=== PATIENT | male | born 1965 | race Caucasian/White ===

== ENCOUNTER 2020-07-05 08:02 | Outpatient (CLI) | payer OTHER, SELFPAY | END 2020-07-05 08:03 | disposition home or self-care (01) | LOC: ANHCOVIDVC 08:02 | PROVIDERS: PCP Internal Medicine | DX: Z23 Encounter for immunization (principal) | CPT/HCPCS: 0001A; 91300 ==

== ENCOUNTER 2020-07-16 07:34 | Emergency (ER) | payer OTHER, SELFPAY ==
--- NOTE | ~2020-07-16 | CT_ITS ---
EXAMINATION: CT abdomen pelvis wo con DATE: 07/16/2020 08:30 INDICATION: Left flank pain for 2 days TECHNIQUE: Computed tomography (CT) of the abdomen and pelvis was performed without intravenous contr ast. The dose-length product was 487.00 mGy-cm. Automated exposure control and iterative reconstructi on technique were employed. COMPARISON: CT dated 02/02/2014. FINDINGS: Cardiomegaly. Lung bases unremarkable. No significant pleural or pericardial effusion. No e vidence for aortic aneurysm. No lymphadenopathy. Colonic diverticulosis without evidence for divertic ulitis. Nonobstructive bowel gas pattern. No free air or free fluid. No lymphadenopathy. No abnormal pelvic masses or fluid collections. Normal appendix. No renal/ureteral stones or hydronephrosis. There is mild osteoarthritis of the hips. Mode rate lumbar spondylosis. IMPRESSION: 1. No acute abdominal abnormality. Reviewed, dictated and finalized at location A.
[2020-07-16 07:51] VITALS: BP 170/93; PULSE 56; RESP 16; TEMP 36.2; O2SAT 99
[2020-07-16 08:20] LABS: Add Urine Microscopic? YES; Appearance Urine Clear (Clear); Bacteria Urine Trace /hpf; Bilirubin Urine Negative (Negative); Blood Urine 2+ (Negative); Color Urine Yellow (Yellow); Glucose Urine UA Negative (Negative); Ketones Urine Negative (Negative); Leukocyte Esterase Ur Negative LEU/UL (Negative); Mucus Urine Moderate /lpf; Nitrate Urine Negative (Negative); Protein Urine 1+ mg/dL (Negative); Specific Grav Ur 1.026 (1.001-1.035); Squamous Epithelial Cell Urine Rare /hpf (Few); Urobilinogen Urine Negative mg/dL (<2.0); WBC Urine 0-3 /hpf
[2020-07-16] MEDS: CYCLOBENZAPRINE HCL 10 MG TABLET PO (08:20)
[2020-07-16] MEDS: KETOROLAC 30 MG/ML VIAL (*BKC) IV PUSH (08:20)
--- NOTE | 2020-07-16 08:21 | ED.GENADULT ---
HPI - General Adult General Chief complaint: Back Pain/Injury Stated complaint: left flank pain Time Seen by Provider: 07/16/20 07:40 Source: patient History of Present Illness HPI narrative: Patient is a 54 y/o male complaining of left mid back pain starting a few days ago. He describes his pain as sharp and rates it as 8/10. His pain is worse with movement. His pain radiates to left lower back pain. He has no nausea, vomiting, diarrhea, dysuria or hematuria. Related Data Allergies Allergy/AdvReac Type Severity Reaction Status Date / Time No Known Allergies Allergy Verified 07/16/20 07:55 Review of Systems Constitutional: Constitutional: Denies chills, Denies fever(s), Denies headache(s) and Denies weakness Eyes: Eyes: Denies blurry vision ENT: Denies headache(s) and Denies neck pain Cardiovascular: Cardiovascular: Denies chest pain and Denies dyspnea Respiratory: Respiratory: Denies cough and Denies dyspnea Gastrointestinal: Gastrointestinal: Denies abdominal pain, Denies diarrhea, Denies nausea and Denies vomiting Genitourinary: Genitourinary: Denies hematuria and Denies dysuria Musculoskeletal: Musculoskeletal: Reports back pain and Denies neck pain Neurologic: Denies headache(s) and Denies weakness PMFSH Past Medical History Medical History Bilateral primary osteoarthritis of knee BMI 32.0-32.9,adult Gout Hypertension Surgical History Surgical History History of arthroscopy of right knee Hx of right knee surgery excision right prepatellar bursa 2014 Family History Family History Mother Hypertension Patient's mother is Acute myocardial infarction Sibling Patient's sister is in good health Patient's brother is in good health Father Acute myocardial infarction, Onset Age: 57 Other Diabetes mellitus Family history of coronary artery disease Family history of learning disability Social History Social History Smoking status: Former smoker Second hand tobacco smoke exposure: No Smoking end date: 04/27/11 Alcohol intake: current Substance use: never Gender identity (if verbalized by the patient): Female Exam Const: General: no acute distress and well developed Orientation/consciousness: oriented to person, oriented to place, oriented to time and patient oriented x3 HENMT: Head: normocephalic Ears: external ears normal General nose exam: Normal external nose present Eyes: General: appearance normal, both eyes and all related structures Conjunctivae: conjunctivae normal Neck: Neck: normal visual inspection and full ROM Chest: Chest palpation & inspection: normal inspection of the chest and no tenderness Resp: Effort & Inspection: normal respiratory effort Auscultation: clear to auscultation bilaterally Cardio: Rate: regular rate Rhythm: regular rhythm GI: GI Palp: No abdominal tenderness and Yes Soft to palpation Skin: General skin exam: normal color and turgor normal Neuro: General: oriented to person, oriented to place, oriented to time and patient oriented x3 Cognition (Neuro): normal cognition Extrem: General: normal to inspection, full ROM and no pedal edema Psych: Appearance: grossly normal Mental Status: mental status grossly normal Affect: normal affect Course Vital Signs Vital signs: Vital Signs Temperature 36.2 C L 07/16/20 07:51 Pulse Rate 56 L 07/16/20 07:51 Respiratory Rate 16 07/16/20 07:51 Blood Pressure 170/93 H 07/16/20 07:51 Pulse Oximetry 99 07/16/20 07:51 Temperature 36.2 C L 07/16/20 07:51 Pulse Rate 58 L 07/16/20 10:43 Respiratory Rate 16 07/16/20 10:43 Blood Pressure 143/89 H 07/16/20 10:43 Pulse Oximetry 99 07/16/20 07:51 Medical Decision Making Vital Signs Maura
[2020-07-16 08:30] LABS: Anion Gap 5 mmol/L (8-16); Blood Urea Nitrogen 22 mg/dL (9-20); Calcium 8.9 mg/dL (8.4-10.2); Carbon Dioxide 26 mmol/L (22-30); Chloride 108 mmol/L (98-107); Estimated CRCL calculation 118 ml/min; Estimated Glomerular Filt Rate > 60; Glucose 118 mg/dL (75-110); Potassium 3.9 mmol/L (3.4-5.0); Sodium 139 mmol/L (137-145)
[2020-07-16 08:46] LABS: Basophils Percent Auto 0.3 % (0.2-1.2); Eosinophils Absolute Auto 0.2 K/mm3 (0-0.3); Eosinophils Percent Auto 2.5 % (0-4.4); Hematocrit 39.1 % (42.0-52.0); Hemoglobin 13.5 g/dL (14.0-18.0); Immature Granulocyte Absolute 0.02 K/mm3 (0.00-0.031); Immature Granulocyte Percent A 0.3 % (0-0.5); Lymphocytes Percent Auto 30.1 % (18.3-44.2); Mean Corpuscular HGB Conc 34.5 g/dl (32-36); Mean Corpuscular Hemoglobin 31.5 pg (26-34); Mean Corpuscular Volume 91.4 fl (80-100); Mean Platelet Volume 10.1 fl (7.4-10.4); Monocytes Absolute Auto 0.5 K/mm3 (0.1-0.6); Monocytes Percent Auto 7.1 % (2.6-8.5); Neutrophils Absolute Auto 3.8 K/mm3 (1.3-6.7); Neutrophils Percent Auto 59.7 % (45.5-73.1); Platelet Count Result 237 k/mm3 (150-375); Red Blood Count 4.28 M/mm3 (4.6-6.20); Red Cell Distribution Width 13.2 % (11.5-14.5); White Blood Count 6.3 K/mm3 (4.5-10.0)
[2020-07-16 10:43] VITALS: BP 143/89; PULSE 58; RESP 16
== END 2020-07-16 10:43 | disposition home or self-care (01) ==
PROVIDERS: Emergency Provider Emergency Medicine; PCP Internal Medicine
DX: M54.5 Low back pain (principal); I10 Essential (primary) hypertension; M10.9 Gout, unspecified; M17.0 Bilateral primary osteoarthritis of knee; Z87.891 Personal history of nicotine dependence
CPT/HCPCS: 36415; 74176; 80048; 81001; 85025; 96374; 99284; A9270; J1885

== ENCOUNTER 2020-07-26 07:59 | Outpatient (CLI) | payer OTHER, SELFPAY | END 2020-07-26 08:00 | disposition home or self-care (01) | LOC: ANHCOVIDVC 07:59 | PROVIDERS: PCP Internal Medicine | DX: Z23 Encounter for immunization (principal) | CPT/HCPCS: 0002A; 91300 ==

== ENCOUNTER 2020-11-21 11:30 | Outpatient (CLI) | payer OTHER, SELFPAY ==
--- NOTE | ~2020-11-21 | US_ITS ---
US soft tissue chest 11/21/2020 12:12 Indication: Palpable chest abnormality. Procedure: High-resolution percent of the right lower chest in the area of palpable concern Comparison: No prior studies for comparison. Findings: There is normal heterogeneous soft tissues without focal mass. No abnormal fluid collection s. Impression: 1: Normal soft tissue ultrasound of the right lower chest. No discrete mass or fluid collection ident ified. Reviewed, dictated and finalized at location A. Impression: 1: Normal soft tissue ultrasound of the right lower chest. No discrete mass or fluid collection identified.
== END 2020-11-21 11:31 | disposition home or self-care (01) ==
PROVIDERS: PCP Internal Medicine; Visit Provider Internal Medicine
DX: I82.90 Acute embolism and thrombosis of unspecified vein (principal); R60.9 Edema, unspecified
CPT/HCPCS: 76604

== ENCOUNTER 2020-12-14 07:19 | Outpatient (CLI) | payer OTHER, SELFPAY ==
[2020-12-14 08:23] LABS: Basophils Percent Auto 0.3 % (0.2-1.2); Eosinophils Absolute Auto 0.2 K/mm3 (0-0.3); Eosinophils Percent Auto 3.7 % (0-4.4); Hematocrit 39.3 % (42.0-52.0); Hemoglobin 13.6 g/dL (14.0-18.0); Immature Granulocyte Absolute 0.02 K/mm3 (0.00-0.031); Immature Granulocyte Percent A 0.3 % (0-0.5); Lymphocytes Absolute Auto 1.77 K/mm3 (0.9-3.2); Lymphocytes Percent Auto 30.9 % (18.3-44.2); Mean Corpuscular HGB Conc 34.6 g/dl (32-36); Mean Corpuscular Hemoglobin 31.6 pg (26-34); Mean Corpuscular Volume 91.4 fl (80-100); Mean Platelet Volume 10.6 fl (7.4-10.4); Monocytes Absolute Auto 0.5 K/mm3 (0.1-0.6); Monocytes Percent Auto 8.2 % (2.6-8.5); Neutrophils Absolute Auto 3.2 K/mm3 (1.3-6.7); Neutrophils Percent Auto 56.6 % (45.5-73.1); Platelet Count Result 263 k/mm3 (150-375); Red Cell Distribution Width 12.8 % (11.5-14.5); White Blood Count 5.7 K/mm3 (4.5-10.0)
[2020-12-14 08:39] LABS: Alanine Aminotransferase 14 U/L (4-50); Albumin Level 4.2 g/dL (3.5-5.1); Alkaline Phosphatase 62 U/L (38-126); Anion Gap 9 mmol/L (8-16); Aspartate Amino Transferase 17 U/L (17-59); Bilirubin,Total 0.5 mg/dL (0.2-1.3); Blood Urea Nitrogen 14 mg/dL (9-20); Calcium 9.4 mg/dL (8.4-10.2); Carbon Dioxide 23 mmol/L (22-30); Chloride 108 mmol/L (98-107); Cholesterol 122 mg/dL (0-200); Estimated Glomerular Filt Rate > 60; Glucose 116 mg/dL (65-110); HDL Direct 39 mg/dL; Magnesium 1.9 mg/dL (1.6-2.3); Potassium 4.6 mmol/L (3.4-5.0); Sodium 140 mmol/L (137-145); Triglycerides 135 mg/dL (<150)
[2020-12-14 08:50] LABS: LDL Cholesterol Direct 52 mg/dL
[2020-12-14 09:08] LABS: Prostate Specific Antigen 1.3 ng/mL (< OR = 4.0)
[2020-12-14 09:42] LABS: Folic Acid 7.5 ng/mL (2.76->20)
== END 2020-12-14 07:20 | disposition home or self-care (01) ==
LOC: ANHLAB 07:21
PROVIDERS: PCP Internal Medicine; Visit Provider Internal Medicine
DX: Z00.00 Encounter for general adult medical examination without abnormal findings (principal); E53.8 Deficiency of other specified B group vitamins; I10 Essential (primary) hypertension
CPT/HCPCS: 36415; 80053; 80061; 82607; 82746; 83735; 84153; 84443; 85025; G0103

== ENCOUNTER 2021-04-15 07:51 | Outpatient (CLI) | payer OTHER, SELFPAY ==
[2021-04-15 08:32] LABS: Basophils Percent Auto 0.5 % (0.2-1.2); Eosinophils Absolute Auto 0.3 K/mm3 (0-0.3); Eosinophils Percent Auto 3.5 % (0-4.4); Hematocrit 39.8 % (42.0-52.0); Hemoglobin 13.5 g/dL (14.0-18.0); Immature Granulocyte Absolute 0.02 K/mm3 (0.00-0.031); Immature Granulocyte Percent A 0.3 % (0-0.5); Lymphocytes Absolute Auto 2.16 K/mm3 (0.9-3.2); Mean Corpuscular HGB Conc 33.9 g/dl (32-36); Mean Corpuscular Volume 91.5 fl (80-100); Mean Platelet Volume 10.2 fl (7.4-10.4); Monocytes Absolute Auto 0.6 K/mm3 (0.1-0.6); Monocytes Percent Auto 7.7 % (2.6-8.5); Neutrophils Absolute Auto 4.4 K/mm3 (1.3-6.7); Platelet Count Result 266 k/mm3 (150-375); Red Blood Count 4.35 M/mm3 (4.6-6.20); Red Cell Distribution Width 12.9 % (11.5-14.5); White Blood Count 7.5 K/mm3 (4.5-10.0)
[2021-04-15 08:42] LABS: Alanine Aminotransferase 17 U/L (4-50); Albumin Level 4.3 g/dL (3.5-5.1); Alkaline Phosphatase 69 U/L (38-126); Anion Gap 6 mmol/L (8-16); Aspartate Amino Transferase 18 U/L (17-59); Bilirubin,Total 0.4 mg/dL (0.2-1.3); Blood Urea Nitrogen 16 mg/dL (9-20); Calcium 8.9 mg/dL (8.4-10.2); Carbon Dioxide 28 mmol/L (22-30); Chloride 103 mmol/L (98-107); Cholesterol 133 mg/dL (0-200); Estimated Glomerular Filt Rate > 60; Glucose 124 mg/dL (65-110); HDL Direct 41 mg/dL; Potassium 4.2 mmol/L (3.4-5.0); Sodium 137 mmol/L (137-145); Triglycerides 131 mg/dL (<150)
[2021-04-15 08:43] LABS: Hemoglobin A1C 5.7 % (<5.7)
[2021-04-15 08:53] LABS: Iron 114 ug/dL (49-181)
[2021-04-15 08:54] LABS: LDL Cholesterol Direct 66 mg/dL
[2021-04-15 09:04] LABS: Percent Iron Saturation 46 % (20-50)
[2021-04-15 09:45] LABS: Folic Acid 5.9 ng/mL (2.76->20)
[2021-04-22 10:53] LABS: Creatinine, Random Urine 191 mg/dL (20-320); Metanephrine, Total Urine 331 mcg/g cr (149-603); Metanephrine, Urine 135 mcg/g cr (21-153); Normetanephrine, Urine 196 mcg/g cr (108-524)
[2021-04-24 15:49] LABS: Renin 0.16 ng/mL/h (0.25-5.82)
== END 2021-04-15 07:52 | disposition home or self-care (01) ==
PROVIDERS: PCP Internal Medicine; Visit Provider Internal Medicine
DX: D64.9 Anemia, unspecified (principal); R73.9 Hyperglycemia, unspecified; I10 Essential (primary) hypertension; E78.00 Pure hypercholesterolemia, unspecified; R53.83 Other fatigue
CPT/HCPCS: 36415; 80053; 80061; 82088; 82570; 82607; 82746; 83036; 83540; 83550; 83835; 84244; 84443; 85025

== ENCOUNTER 2021-04-21 14:12 | Emergency (ER) | payer OTHER, SELFPAY ==
--- NOTE | ~2021-04-21 | CT_ITS ---
EXAMINATION: CT abdomen pelvis w con DATE: 04/21/2021 16:55 INDICATION: Left-sided abdominal pain TECHNIQUE: Computed tomography (CT) of the abdomen and pelvis was performed with 100 mL Omnipaque-350 intravenous contrast. Automated exposure control and iterative reconstruction technique were employe d. The dose-length product was 1283.13 mGy-cm. COMPARISON: CT dated 07/16/2020 and MRI dated 12/23/2016 FINDINGS: Lung bases are clear. Heart size is normal. No pericardial or pleural effusion. No significant interv al change in a 3.3 x 2.6 cm peripherally enhancing hemangioma in the central segment 2 of the left he patic lobe and more homogeneously approximately 2.3 x 1.7 cm hemangioma in segment 3. Couple unchange d subcentimeter low-attenuation cysts in segment IVb and 3. Gallbladder, spleen, pancreas, bilateral adrenal glands and kidneys are normal. Prominent wall thickening at the junction of the descending an d sigmoid colon in the region of a diverticulum with prominent surrounding inflammatory stranding con sistent with acute diverticulitis. Numerous additional diverticula without adjacent inflammatory worley ge along the more distal sigmoid colon. No bowel obstruction. Small amount of likely reactive ascites in the deep pelvis. No abscess or free intraperitoneal gas. Bladder is normal. Mild prostatomegaly. No pathologically enlarged abdominal or pelvic lymphadenopathy. Severe spondylosis at the lumbosacral junction. Several scattered small sclerotic bone islands in the pelvis. L5 hemangioma. IMPRESSION: 1. Radiographically uncomplicated diverticulitis. Reviewed, dictated and finalized at [facility]. IO CAMERA OPERATOR
[2021-04-21 14:14] VITALS: BP 172/100; PULSE 64; RESP 18; TEMP 36.3; O2SAT 99
[2021-04-21 15:56] VITALS: BP 159/85; PULSE 65; RESP 17; TEMP 36.6; O2SAT 100
--- NOTE | 2021-04-21 16:02 | ED.ABDPAIN ---
HPI - Abdominal Pain General Chief Complaint: Abdominal Pain Stated Complaint: abdominal pain Time Seen by Provider: 04/21/21 15:57 Source: patient Mode of arrival: ambulatory Limitations: no limitations History of Present Illness HPI narrative: Patient is a 55-year-old male complaining of left lower quadrant pain, 8 out of 10, sharp, nonradiating started 3 hours prior to arrival. Patient denies any chest pain, shortness of breath, nausea, vomiting, diarrhea, urinary symptoms, fever or chills. Related Data Allergies Allergy/AdvReac Type Severity Reaction Status Date / Time No Known Allergies Allergy Verified 04/16/21 14:08 Review of Systems Review of Systems: All systems reviewed & are unremarkable except as noted in HPI and below Constitutional: Constitutional: Denies body ache(s), Denies chills, Denies excessive sweating, Denies fatigue, Denies fever(s), Denies headache(s), Denies lethargy, Denies malaise, Denies weakness and Denies weight loss Eyes: Eyes: Denies blurry vision, Denies change in vision and Denies loss of vision ENT: Denies dizziness, Denies ear discharge, Denies headache(s), Denies lip swelling, Denies epistaxis, Denies nasal congestion, Denies neck pain, Denies throat swelling and Denies tongue swelling Cardiovascular: Cardiovascular: Denies chest pain, Denies chest pain at rest, Denies chest pain with activity, Denies diaphoresis, Denies rapid heart rate, Denies edema, Denies irregular heart rhythm, Denies lightheadedness, Denies palpitations, Denies dyspnea and Denies dyspnea on exertion Respiratory: Respiratory: Denies chest congestion, Denies cough, Denies hemoptysis, Denies dyspnea and Denies dyspnea on exertion Gastrointestinal: Gastrointestinal: Denies melena, Denies hematochezia, Denies diarrhea, Denies nausea, Denies vomiting and Denies hematemesis Musculoskeletal: Musculoskeletal: Denies abnormal gait, Denies deformity, Denies joint swelling, Denies limited range of motion, Denies neck pain and Denies numbness Neurologic: Denies Abnormal speech present, Denies abnormal gait, Denies confusion, Denies dizziness, Denies headache(s), Denies focal weakness, Denies loss of vision, Denies numbness, Denies Other visual disturbances, Denies Sensory deficit (Neuro) and Denies weakness Psychiatric: Psychiatric: Denies confusion, Denies depression, Denies auditory hallucinations, Denies homicidal ideation and Denies suicidal ideation Endocrine: Endocrine: Denies cold intolerance, Denies excessive sweating, Denies fatigue, Denies heat intolerance and Denies palpitations Hematologic/Lymphatic: Hematologic/Lymphatic: Denies easy bleeding and Denies easy bruising Allergic/Immunologic: Allergic/Immunologic: Denies lip swelling, Denies throat swelling and Denies tongue swelling PMFSH Past Medical History Medical History Bilateral primary osteoarthritis of knee BMI 32.0-32.9,adult Gout Hypertension Surgical History Surgical History History of arthroscopy of right knee Hx of right knee surgery excision right prepatellar bursa 2014 Family History Family History Mother Hypertension Patient's mother is Acute myocardial infarction Sibling Patient's sister is in good health Patient's brother is in good health Father Acute myocardial infarction, Onset Age: 57 Other Diabetes mellitus Family history of coronary artery disease Family history of learning disability Social History Social History Smoking status: Never smoker Second hand tobacco smoke exposure: No Smoking end date: 04/27/11 Alcohol intake: current Alcohol use details: occasional Substance use: never Gender identity (if verbalized by the patient): Female Exam Const: General:
[2021-04-21] MEDS: SODIUM CHLORIDE 0.9% IV 1,000 ML 999 ML IV CONT (16:10)
[2021-04-21 16:23] LABS: Basophils Percent Auto 0.3 % (0.2-1.2); Eosinophils Absolute Auto 0.1 K/mm3 (0-0.3); Eosinophils Percent Auto 0.9 % (0-4.4); Hematocrit 41.2 % (42.0-52.0); Hemoglobin 14.1 g/dL (14.0-18.0); Immature Granulocyte Absolute 0.03 K/mm3 (0.00-0.031); Immature Granulocyte Percent A 0.4 % (0-0.5); Lymphocytes Absolute Auto 1.76 K/mm3 (0.9-3.2); Lymphocytes Percent Auto 22.1 % (18.3-44.2); Mean Corpuscular HGB Conc 34.2 g/dl (32-36); Mean Corpuscular Volume 93.4 fl (80-100); Mean Platelet Volume 10.4 fl (7.4-10.4); Monocytes Absolute Auto 0.7 K/mm3 (0.1-0.6); Monocytes Percent Auto 9.2 % (2.6-8.5); Neutrophils Absolute Auto 5.4 K/mm3 (1.3-6.7); Neutrophils Percent Auto 67.1 % (45.5-73.1); Platelet Count Result 212 k/mm3 (150-375); Red Blood Count 4.41 M/mm3 (4.6-6.20); Red Cell Distribution Width 13.2 % (11.5-14.5)
[2021-04-21 16:35] LABS: Lactic Acid Reflex 0.8 mmol/L (0.7-2.1)
[2021-04-21 16:36] LABS: Alanine Aminotransferase 21 U/L (4-50); Albumin Level 4.7 g/dL (3.5-5.1); Alkaline Phosphatase 72 U/L (38-126); Anion Gap 8 mmol/L (8-16); Aspartate Amino Transferase 30 U/L (17-59); Bilirubin,Total 0.3 mg/dL (0.2-1.3); Blood Urea Nitrogen 15 mg/dL (9-20); Calcium 9.2 mg/dL (8.4-10.2); Carbon Dioxide 27 mmol/L (22-30); Chloride 104 mmol/L (98-107); Estimated CRCL calculation 104 ml/min; Estimated Glomerular Filt Rate > 60; Glucose 99 mg/dL (65-110); Lipase 101 U/L (23-300); Sodium 139 mmol/L (137-145)
[2021-04-21] MEDS: KETOROLAC 30 MG/ML VIAL (*BKC) IV PUSH (16:45)
[2021-04-21 18:00] VITALS: BP 142/84; PULSE 64; RESP 16; O2SAT 97
[2021-04-21 18:23] LABS: Add Urine Microscopic? YES; Appearance Urine Clear (Clear); Bilirubin Urine Negative (Negative); Blood Urine 1+ (Negative); Color Urine Straw (Yellow); Glucose Urine UA Negative (Negative); Ketones Urine Negative (Negative); Leukocyte Esterase Ur Negative LEU/UL (Negative); Nitrate Urine Negative (Negative); Protein Urine Negative (Negative); Squamous Epithelial Cell Urine Rare /hpf (Few); Urobilinogen Urine Negative mg/dL (<2.0); WBC Urine 0-3 /hpf
[2021-04-21 18:26] LABS: Specific Grav Ur 1.031 (1.001-1.035)
[2021-04-21] MEDS: metroNIDAZOLE 250 MG TABLET 500 MG PO (19:02)
[2021-04-21] MEDS: HYDROcodone/acetaminophen (*CRX) 5-325 MG TABLET 1 TAB PO (19:25)
[2021-04-21] MEDS: HYDROmorphone HCL INJ (*CRX) 1 MG/ML SYR 0.5 MG IV PUSH (19:25)
[2021-04-21 20:06] VITALS: BP 150/68; PULSE 71; RESP 17; O2SAT 99
== END 2021-04-21 20:10 | disposition home or self-care (01) ==
PROVIDERS: Emergency Provider Emergency Medicine; PCP Internal Medicine
DX: K57.92 Diverticulitis of intestine, part unspecified, without perforation or abscess without bleeding (principal); M10.9 Gout, unspecified; I10 Essential (primary) hypertension
CPT/HCPCS: 36415; 74177; 80053; 81001; 83605; 83690; 85025; 96361; 96374; 96375; 99284; A9270; J0696; J1170; J1885; J7030; Q9967

== ENCOUNTER 2021-11-09 07:37 | Outpatient (CLI) | payer OTHER, SELFPAY ==
--- NOTE | ~2021-11-09 | CT_ITS ---
EXAMINATION: CT LE RT wo con DATE: 11/09/2021 08:27 INDICATION: Right knee osteoarthritis. Preop planning. TECHNIQUE: Computed tomography (CT) of the right lower limb was performed without intravenous contras t. Automated exposure control and iterative reconstruction technique were employed. The dose-length p roduct was 734.49 mGy-cm. COMPARISON: Right knee radiographs 10/31/2021 FINDINGS: At the knee, bone alignment is normal. No fracture. There is moderate osteoarthritis of med ial and patellofemoral compartments and mild osteoarthritis of lateral compartment. There is a small knee joint effusion. IMPRESSION: 1. Moderate right knee osteoarthritis. 2. Small right knee joint effusion. Reviewed, dictated and finalized at location A.
== END 2021-11-09 07:38 | disposition home or self-care (01) ==
PROVIDERS: PCP Physician Assistant; Visit Provider Orthopaedic Surgery
DX: M17.11 Unilateral primary osteoarthritis, right knee (principal); M25.461 Effusion, right knee; M16.11 Unilateral primary osteoarthritis, right hip
CPT/HCPCS: 73700

== ENCOUNTER 2021-11-09 08:58 | Outpatient (CLI) | payer OTHER, SELFPAY ==
--- NOTE | 2021-11-09 | ECG_ITS ---
Measurements Intervals [place] Rate: 44 P: 48 MS: 160 QRS: 1 QRSD: 112 T: 9 QT: 446 QTc: 385 Interpretive Statements SINUS BRADYCARDIA INTRAVENTRICULAR CONDUCTION DELAY NONSPECIFIC ST & T-WAVE ABNORMALITY- INF/HIGH LAT LEADS BASELINE WANDER- I, II, AVR, AVL, AVF, V1-V6 ABNORMAL ECG Electronically Signed On 11-09-2021 10:10:07 CDT by Reji Root D.O.
[2021-11-09 09:23] LABS: Hematocrit 40.4 % (42.0-52.0); Hemoglobin 13.6 g/dL (14.0-18.0)
[2021-11-09 09:37] LABS: Albumin Level 4.4 g/dL (3.5-5.1); Estimated Glomerular Filt Rate > 60; Glucose 113 mg/dL (65-110)
[2021-11-09 10:24] LABS: Urine Cotinine NEGATIVE
[2021-11-09 10:53] LABS: Hemoglobin A1C 5.5 % (<5.7)
== END 2021-11-09 08:59 | disposition home or self-care (01) ==
LOC: ANHLAB 08:59
PROVIDERS: PCP Physician Assistant; Visit Provider Orthopaedic Surgery
DX: Z01.818 Encounter for other preprocedural examination (principal); M17.11 Unilateral primary osteoarthritis, right knee; E78.00 Pure hypercholesterolemia, unspecified; I10 Essential (primary) hypertension; R73.9 Hyperglycemia, unspecified; R94.31 Abnormal electrocardiogram [ECG] [EKG]
CPT/HCPCS: 80307; 82040; 82565; 82947; 83036; 85014; 85018; 93005

== ENCOUNTER 2021-11-26 07:50 | Outpatient (RCR) | payer OTHER, SELFPAY ==
--- NOTE | 2021-11-26 08:52 | PTOPEVAL ---
Thank you for referring Kristopher Hawk to [facility].? He was issued a home exercise program and was educated on kinesiotape, ice, elevation for pain control. Sixto is going to perform the HEP and is to call for any questions. If he feels he needs additional therapy, he is to call for appointment. The plan of care is established for? 0-2 x/week for 4 weeks. Please review, sign, date and return this plan of care BRUNO. I agree with and certify that the following plan of care is medically necessary. Referring Physician Date Attending Provider: Guido Ro MD Past Medical History- per pt: Cardiovascular History Hx Hypercholesterolemia Yes: meds Hx Hypertension Yes: meds Respiratory History Musculoskeletal History Hx Orthopedic Surgery Yes: R and L knee arthroscopy; Evaluation Information Diagnosis OA R knee Subjective Information to have TKR in February, Query Text:As Reported By Patient/ orders for pre-rehab and HEP Family Prior Level of Function Activity Level (Last 3 Months) Occupation own [employer] business Pain Assessment Pain Scale Used Numeric (1 - 10) Self Report Pain Assessment Right Knee(s) Reported Pain Level 3 Pain Description Burning,Sharp Pain Frequency Chronic,Continuous Other Pain Description lateral patella Lowest Pain Intensity 3 Greatest Pain Intensity 4 Pain Aggravating Factors Stair Climbing,Walking Other Pain Aggravating Factors wake up with knee pain 2x/ night; Additional Pain Comments tried knee brace-did not help and knee swelled more Additional Pain Score Comments discussed elevation and ice for pain control; increase pain end of day- with walking/standing activity ~ 6 hours; instructed and education on use of kinesiotape: Y over patella and lateral strip for pain control and support to knee; Other Alleviating Interventions advil for pain Gross Lower Extremity Range of Motion R knee in sitting, active (-10 Comments ') to 95'- increase pain with knee flexion; with stretching knee flexion 105'; L knee 0- 130'; B ankle and hips WNL without pain; hip IR 20', ER 40'; hamstring length with SLR 70' Gross Lower Extremity Strength functional strength of R LE: - supine SLR x 30 reps- no
--- NOTE | 2022-01-01 11:37 | PCPTNOTE ---
PHYSICAL THERAPY DISCHARGE REPORT 9-7-22 Attending Provider: Guido Ro MD Patient:Kristopher Hawk Date of :1965 Kristopher has not returned for any further treatments since the initial evaluation, with HEP education on 11/26/2021, therefore he will be discharged at this time. Thank you for referring Mr. Hawk to [facility]. Please review, sign, date and return this discharge summary BRUNO. I have been updated about the patient's current status and I agree with discharge from the above service at this time. Referring Physician Date
== END 2022-01-01 14:20 | disposition home or self-care (01) ==
LOC: ANHPT 07:50
PROVIDERS: PCP Physician Assistant; Visit Provider Orthopaedic Surgery
DX: M17.11 Unilateral primary osteoarthritis, right knee (principal)
CPT/HCPCS: 97161

== ENCOUNTER 2022-01-31 07:07 | Outpatient (CLI) | payer OTHER, SELFPAY ==
[2022-01-31 07:34] LABS: Hemoglobin 13.8 g/dL (14.0-18.0); Mean Corpuscular HGB Conc 34.5 g/dl (32-36); Mean Corpuscular Hemoglobin 31.8 pg (26-34); Mean Corpuscular Volume 92.2 fl (80-100); Platelet Count Result 263 k/mm3 (150-375); Red Blood Count 4.34 M/mm3 (4.6-6.20); Red Cell Distribution Width 13.2 % (11.5-14.5); White Blood Count 5.8 K/mm3 (4.5-10.0)
[2022-01-31 10:04] LABS: Prostate Specific Antigen 1.5 ng/mL (< OR = 4.0)
[2022-01-31 13:37] LABS: Alanine Aminotransferase 20 U/L (6-50); Albumin Level 4.3 g/dL (3.5-5.1); Alkaline Phosphatase 60 U/L (38-126); Anion Gap 14 mmol/L (8-16); Aspartate Amino Transferase 20 U/L (17-59); Bilirubin,Total 0.5 mg/dL (0.2-1.3); Blood Urea Nitrogen 18 mg/dL (9-20); Calcium 9.2 mg/dL (8.4-10.2); Carbon Dioxide 25 mmol/L (22-30); Chloride 105 mmol/L (98-107); Cholesterol 124 mg/dL (0-200); Estimated Glomerular Filt Rate > 60; Folic Acid 7.9 ng/mL (2.76->20); Glucose 123 mg/dL (65-110); HDL Direct 38 mg/dL; LDL Cholesterol Direct < 150 mg/dL; Potassium 3.7 mmol/L (3.4-5.0); Sodium 144 mmol/L (137-145); Triglycerides 94 mg/dL (<150)
== END 2022-01-31 07:08 | disposition home or self-care (01) ==
LOC: ANHLAB 07:10
PROVIDERS: PCP Physician Assistant; Visit Provider Physician Assistant
DX: Z00.00 Encounter for general adult medical examination without abnormal findings (principal); Z12.5 Encounter for screening for malignant neoplasm of prostate
CPT/HCPCS: 36415; 80053; 80061; 82607; 82746; 84153; 84443; 85027; G0103

== ENCOUNTER 2022-02-10 09:37 | Outpatient (CLI) | payer OTHER, SELFPAY ==
[2022-02-10 11:29] LABS: Urine Cotinine NEGATIVE
[2022-02-10 11:37] LABS: Hemoglobin A1C 5.8 % (<5.7)
== END 2022-02-10 09:38 | disposition home or self-care (01) ==
LOC: ANHSURGERY 09:41
PROVIDERS: PCP Internal Medicine; Visit Provider Orthopaedic Surgery
DX: M17.11 Unilateral primary osteoarthritis, right knee (principal); Z01.818 Encounter for other preprocedural examination
CPT/HCPCS: 80307; 83036; 87081

== ENCOUNTER 2022-03-17 01:08 | Day surgery (SDC) | payer OTHER, SELFPAY ==
[2022-02-10 10:08] VITALS: BP 161/93; PULSE 59; RESP 16; TEMP 36.3; O2SAT 98; BMI 32.5
--- NOTE | 2022-02-10 10:15 | PC.NURSE ---
Report to the Outpatient Waiting Room, entrance under the green pavilion located off [facility], at time _6:00AM on date __03/11/22 . OR Time: ___7:30AM . Time changes happen often and if your time is changed the preop area will call you the afternoon before. - You and your visitor will be asked to self-screen and do not enter if you have any COVID symptoms. - We encourage only one visitor and NO visitors under age 16 are allowed at this time. Your visitor will receive communication by the phone number that is given day of service. - The patient visitor is requested to social distance or may leave the building when not with patient due to restrictions. - A mask is required within the hospital. Patients may have clear liquids (water, carbonated beverages, clear teas, apple juice) until 3 hours prior to surgery with a maximum of 20 ounces. - No food from midnight until time of surgery - Infants may have breast milk until 4 hours before surgery, infant formula 6 hours prior to surgery. - Children will be allowed to drink immediately following surgery. If applicable, please bring a bottle or sippy cup to assist with drinking. Juice, water, soda, and popsicles are readily available. For infants on formula, please bring formula the day of surgery. Pacifiers are allowed. Take the following medications with a SIP of water the morning of surgery: ____AMLODIPINE, ATENOLOL Medications to discontinue per physician HOLD MELOXICAM 7 DAYS PRE-OP Date to take last dose 03/04/22 Please no make-up, nail swedish, hairspray, perfume, deodorant, or body powder the day of surgery. No jewelry (including any body piercings) or valuables the day of surgery, leave them at home. Please take a shower or bath the night before, or the morning of, surgery with an antibacterial soap. Wear comfortable, loose fitting clothing. Children are encouraged to wear pajamas. - Jewelry must be removed prior to entering the operating room. Rings and piercings that are not removed may be cut off. - The hospital will not accept responsibility for valuables. - Please leave all valuables, including medications, at home the day of surgery. If you are going home after surgery, a licensed shag truck driver must drive you home. - NO public transportation without another adult. - We recommend that an adult stay with you for 24 hours following discharge. - We also recommend that you do not drive, make important decision, drink alcoholic beverages, or take any drugs that were not prescribed by your health care provider for at least 24 hours after your discharge time. For Pediatric surgeries, we recommend two adults accompany the child home. Follow any additional instructions given to you from your surgeon. If you or anyone in your household have experienced Covid symptoms in the past week, please notify your surgeon or the nurse liaison at the phone number below for possible testing. Telephone instructions given to _PATIENT and asked if any additional questions and then verbalized understanding. Patient advised to call surgeon office or pre surgery nurse liaison [phone] if any additional questions.
--- NOTE | 2022-03-10 14:10 | WPDANESEPPF ---
Anes - Initial Pre Proc Eval Procedure: Operation Date: 03/11/22 07:30 Proposed Procedures p Right Custom Total Knee Arthroplasty - Guido Ro MD Date/Time: 03/10/22 14:10 Surgeon: Guido Ro MD Pre Op Diagnosis: primary oa right knee Patient Data Age: 56 Gender: M Height: 1.85 m Weight: 112 kg Last Vital Signs Temp 36.3 C L 02/10/22 10:08 Pulse 59 L 02/10/22 10:08 Resp 16 02/10/22 10:08 BP 161/93 H 02/10/22 10:08 Pulse Ox 98 02/10/22 10:08 O2 Del Method Room Air 02/10/22 10:08 Allergies Allergy/AdvReac Type Severity Reaction Status Date / Time No Known Allergies Allergy Verified 02/26/22 09:34 Home Medications Medication Instructions Recorded Confirmed Type amlodipine 10 mg tablet 10 mg PO DAILY #90 tabs 01/08/22 02/26/22 Rx atenolol 50 mg tablet 50 mg PO DAILY #90 tabs 02/10/22 02/26/22 Rx gemfibrozil 600 mg tablet 600 mg PO BID #180 tabs 02/10/22 02/26/22 Rx lisinopril 40 mg tablet 40 mg PO DAILY #90 tabs 02/10/22 02/26/22 Rx rosuvastatin 20 mg tablet (Crestor) 20 mg PO DAILY #90 tabs 02/10/22 02/26/22 Rx Results Review: All pre-operative results and documents have been reviewed as part of the pre-operative evaluation. [facility] Past Medical History Medical History (Updated 03/10/22 @ 14:11 by Son Marie MD) Bilateral primary osteoarthritis of knee BMI 32.0-32.9,adult Gout Hypertension Liver hemangioma Pure hypercholesterolemia, unspecified Surgical History Surgical History History of arthroscopy of right knee Hx of right knee surgery excision right prepatellar bursa 2014 Family History Family History Mother Hypertension Patient's mother is Acute myocardial infarction Sibling Patient's sister is in good health Patient's brother is in good health Father Acute myocardial infarction, Onset Age: 57 Other Diabetes mellitus Family history of coronary artery disease Family history of learning disability Social History Social History Smoking packs per day: 0.75 Smoking cigarettes per day: 15.0 Years smoked: 10 Smoking pack-years: 7.50 Smoking status: Former smoker Tobacco type: cigarettes Second hand tobacco smoke exposure: No Smoking end date: 10/25/06 Alcohol intake: current Drinks per week: 4 Alcohol use details: occasional Substance use: never Lack of Transportation: No Lack of Food: Never True Current Housing: I Have Housing Concerned About Future Housing: No Difficulty Paying Gas/Electric Bills: No Difficulty Paying for Meds: No Currently Unemployed: No Education: Decline to Answer Difficulty w/ Childcare or Family Care: No Additional living arrangements comments: AND CHILDREN Gender identity (if verbalized by the patient): Male Spiritual care concerns: No Anes - Eval Final PreProcedure Day of Procedure 03/10/22 14:10 Patient weight: obese Heart: regular rate and rhythm Lungs: clear to auscultation and normal air movement Airway: Mallampati scale class II Neurological: alert and oriented Last oral intake: >/= 8 hours ASA classification: III Emergent: no Anesthetic plan: proceed Anesthesia type and monitoring: general LMA Results Review: All pre-operative results and documents have been reviewed as part of the pre-operative evaluation. Informed Consent: The patient's anesthetic plan and its attendant risks and benefits were discussed with the patient/family/POA. Questions were solicited and answers provided to the satisfaction of the patient/family/POA.
--- NOTE | 2022-03-10 14:12 | WPDANESPNB ---
Anes - Peripheral Nerve Block Date/Time: 03/10/22 14:12 I have discussed with the patient/family/POA the placement of a peripheral nerve block for post-operative pain management, including associated risks, benefits, complications, and side effects. Alternative methods of post-operative analgesia were detailed. Questions were solicited and answers provided to the satisfaction of the patient/family/POA. Time-Out: A pre-procedural Time-Out was completed immediately before starting the procedure and confirmed: Patient Identification, Site, Procedure, Patient Position and the Availability of Requisite Equipment. Clinical Indications: Acute post-operative pain management requested by the operative surgeon. Nerve Block Insertion Note Needle: 22 gauge, stimulating, insulated echogenic needle.
--- NOTE | 2022-03-12 09:38 | PC.NURSE ---
Report to the Outpatient Waiting Room, entrance under the green pavilion located off [facility], at time 0600 on date 03/17/22. Planned Procedure Time: 0730. Time changes happen often and if your time is changed the preop area will call you the afternoon before. - You and your visitor will be asked to self-screen and do not enter if you have any COVID symptoms. - Only one visitor is requested with a max of two and NO children visitors are allowed at this time. - The patient visitor may be requested to leave or wait in car when not with patient due to distancing restrictions. - A mask is optional within the hospital. Patients may have clear liquids (water, carbonated beverages, clear teas, apple juice) until 3 hours prior to surgery with a maximum of 20 ounces. - No food from midnight until time of surgery Take the following medications with a SIP of water the morning of surgery: AMLODIPINE, ATENOLOL Medications to discontinue per physician: N/A Date to take last dose: N/A Please no make-up, nail czech, hairspray, perfume, deodorant, or body powder the day of surgery. No jewelry (including any body piercings) or valuables the day of surgery, leave them at home. Please take a shower or bath the night before, or the morning of, surgery with an antibacterial soap. Wear comfortable, loose fitting clothing. - Jewelry must be removed prior to entering the operating room. Rings and piercings that are not removed may be cut off. - The hospital will not accept responsibility for valuables. - Please leave all valuables, including medications, at home the day of surgery. If you are going home after surgery, a licensed concrete truck driver must drive you home. - NO public transportation without another adult if you receive anesthesia. - We recommend that an adult stay with you for 24 hours following discharge. - We also recommend that you do not drive, make important decision, drink alcoholic beverages, or take any drugs that were not prescribed by your health care provider for at least 24 hours after your discharge time. Follow any additional instructions given to you from your surgeon. If you or anyone in your household have experienced Covid symptoms in the past week, please notify your surgeon or the nurse liaison at the phone number below for possible testing. Telephone instructions given to PT - LAURA PAYNE and asked if any additional questions and then verbalized understanding. Patient advised to call surgeon office or pre surgery nurse liaison [phone] if any additional questions.
--- NOTE | 2022-03-12 09:39 | PC.NURSE ---
Pt states no changes in medications or health history since initial interview. New pre-op instructions reviewed with pt. Pt denies further questions at this time.
--- NOTE | 2022-03-14 16:06 | WPDANESEPPF ---
Anes - Initial Pre Proc Eval Procedure: Operation Date: 03/17/22 07:30 Proposed Procedures p Right Custom Total Knee Arthroplasty - Guido Ro MD Date/Time: 03/14/22 16:06 Surgeon: Guido Ro MD Pre Op Diagnosis: primary oa right knee Patient Data Age: 56 Gender: M Height: 1.85 m Weight: 112 kg Last Vital Signs Temp 36.3 C L 02/10/22 10:08 Pulse 59 L 02/10/22 10:08 Resp 16 02/10/22 10:08 BP 161/93 H 02/10/22 10:08 Pulse Ox 98 02/10/22 10:08 O2 Del Method Room Air 02/10/22 10:08 Allergies Allergy/AdvReac Type Severity Reaction Status Date / Time No Known Allergies Allergy Verified 03/12/22 09:38 Home Medications Medication Instructions Recorded Confirmed Type amlodipine 10 mg tablet 10 mg PO DAILY #90 tabs 01/08/22 03/12/22 Rx atenolol 50 mg tablet 50 mg PO DAILY #90 tabs 02/10/22 03/12/22 Rx gemfibrozil 600 mg tablet 600 mg PO BID #180 tabs 02/10/22 03/12/22 Rx lisinopril 40 mg tablet 40 mg PO DAILY #90 tabs 02/10/22 03/12/22 Rx rosuvastatin 20 mg tablet (Crestor) 20 mg PO DAILY #90 tabs 02/10/22 03/12/22 Rx Patient hx anesthesia problems: none Family hx anesthesia problems: none Results Review: All pre-operative results and documents have been reviewed as part of the pre-operative evaluation. [facility] Past Medical History Medical History (Updated 03/10/22 @ 14:11 by Son Marie MD) Bilateral primary osteoarthritis of knee BMI 32.0-32.9,adult Gout Hypertension Liver hemangioma Pure hypercholesterolemia, unspecified Surgical History Surgical History History of arthroscopy of right knee Hx of right knee surgery excision right prepatellar bursa 2014 Family History Family History Mother Hypertension Patient's mother is Acute myocardial infarction Sibling Patient's sister is in good health Patient's brother is in good health Father Acute myocardial infarction, Onset Age: 57 Other Diabetes mellitus Family history of coronary artery disease Family history of learning disability Social History Social History Smoking packs per day: 0.75 Smoking cigarettes per day: 15.0 Years smoked: 10 Smoking pack-years: 7.50 Smoking status: Former smoker Tobacco type: cigarettes Second hand tobacco smoke exposure: No Smoking end date: 10/25/06 Alcohol intake: current Drinks per week: 4 Alcohol use details: occasional Substance use: never Lack of Transportation: No Lack of Food: Never True Current Housing: I Have Housing Concerned About Future Housing: No Difficulty Paying Gas/Electric Bills: No Difficulty Paying for Meds: No Currently Unemployed: No Education: Decline to Answer Difficulty w/ Childcare or Family Care: No Living arrangements: with family Additional living arrangements comments: AND CHILDREN Gender identity (if verbalized by the patient): Male Spiritual care concerns: No Anes - Eval Final PreProcedure Day of Procedure 03/14/22 16:06 Patient weight: obese Heart: regular rate and rhythm Lungs: clear to auscultation and normal air movement Airway: Mallampati scale class II Neurological: alert and oriented Last oral intake: >/= 8 hours ASA classification: III Emergent: no Anesthetic plan: proceed Anesthesia type and monitoring: general LMA Results Review: All pre-operative results and documents have been reviewed as part of the pre-operative evaluation. Informed Consent: The patient's anesthetic plan and its attendant risks and benefits were discussed with the patient/family/POA. Questions were solicited and answers provided to the satisfaction of the patient/family/POA.
--- NOTE | 2022-03-14 16:06 | WPDANESPNB ---
Anes - Peripheral Nerve Block Date/Time: 03/14/22 16:06 I have discussed with the patient/family/POA the placement of a peripheral nerve block for post-operative pain management, including associated risks, benefits, complications, and side effects. Alternative methods of post-operative analgesia were detailed. Questions were solicited and answers provided to the satisfaction of the patient/family/POA. Time-Out: A pre-procedural Time-Out was completed immediately before starting the procedure and confirmed: Patient Identification, Site, Procedure, Patient Position and the Availability of Requisite Equipment. Clinical Indications: Acute post-operative pain management requested by the operative surgeon. Nerve Block Insertion Note Anes-nerve block: adductor canal right Patient position: supine Skin prep: chlorhexidine Needle: 22 gauge, stimulating, insulated echogenic needle. Needle length: 80 mm Technique: ultrasound Technique comment: in plane Injectate: bupivacaine 0.25% with epi 5 mcg/ml (30cc) Observations: tolerated well Complications: none Procedure start time:: 725 Procedure end time:: 730
[2022-03-17] VITALS (19 sets, daily range): BP systolic 115–146; BP diastolic 53–92; PULSE 52–71; RESP 10–16; TEMP 36.3–37.6; O2SAT 91–99
--- NOTE | ~2022-03-17 | XR_ITS ---
EXAMINATION: XR knee RT 2V DATE: 03/17/2022 09:56 INDICATION: Total right knee arthroplasty. Postop. TECHNIQUE: 2 views of right knee were obtained. COMPARISON: Right knee radiographs 10/31/2021 FINDINGS: There is a total right knee arthroplasty without patellar resurfacing in near-anatomic alig nment. No fracture. There is gas in the knee joint and soft tissues, consistent with recent surgery. IMPRESSION: 1. Total right knee arthroplasty in near-anatomic alignment. Reviewed, dictated and finalized at location A. SOLUTION MANAGER CONSULTANT
[2022-03-17] MEDS: ACETAMINOPHEN 500 MG TABLET 1000 MG PO (07:00)
[2022-03-17] MEDS: LACTATED RINGERS 1,000 ML 30 ML IV CONT ×3 (07:00→11:39)
[2022-03-17] MEDS: TRANEXAMIC ACID 1,000MG/ISO100 1,000 MG/100 ML BAG 200 MG IVPB (07:00)
--- NOTE | 2022-03-17 07:20 | WPDHPUPDATE1 ---
History and Physical Update Update Date/Time: 03/17/22 07:20 History and Physical has been reviewed, including an updated exam of the patient. There are NO changes in the patient's condition. Risks, benefits, and alternatives have been discussed and questions answered. Patient agrees to proceed with procedure.
[2022-03-17] MEDS: ceFAZolin 2 GM/D5W 50 ML 2 GM/50 ML BAG IVPB ×3 (07:37→23:44)
[2022-03-17] MEDS: GENTAMICIN BONE CEMENT REFOBACIN 1 EACH TOPICAL (08:11)
[2022-03-17] MEDS: fentaNYL CITRATE INJ (*CRX) 100 MCG/2 ML VIAL 25 MCG IV PUSH ×4 (09:55→10:10)
--- NOTE | 2022-03-17 10:22 | P.OP_ITS ---
Procedure Note - Detailed Date of Procedure 03/17/22 Pre-op Diagnosis primary oa right knee Post-op Diagnosis Same Procedure Performed Total knee arthroplasty, right. Surgeon Guido Ro MD Anesthesia General and Regional (Subsartorial block.) Findings Good bone quality. No release required. Custom knee optimal fit. Description of Procedure Preoperative antibiotics were given. The limb was prepped and draped in the usual sterile fashion with a well-padded tourniquet high on the thigh. The limb was exsanguinated and the tourniquet inflated to 300 mmHg. A longitudinal incision was created just medial to the patella. A trivector approach to the kn ee was performed. Arthrotomy was taken down through the joint capsule. No significant releases were initially taken. The femur was exposed and the F1 jig was applied. The coring tool was used to remove the cartilage for the F2 jig to sit flush with the bone. The jig was pinned and the distal cut carefully taken. Caliper measurements confirmed appropriate bony resections according to the preoperative templated plan. The F4 cutting jig for the femur was applied, at the standard rotation. The AP and anterior chamfer cuts were taken. The F5 jig was applied and the posterior chamfer cuts were taken. The tibia was prepared using the T1 jig, after removing cartilage for the jig contact points. Proper alignment was checked with the alignment mechelle. The tibia was cut using the T1u guide. Gap balancing was performed. Gap measurements were taken and the knee was trialed. Excellent alignment and soft tissue balancing was confirmed. The posterior cruciate ligament was recessed along the proximal tibia. The patella was cut for resurfacing. Three lug holes were drilled. Meniscal remnants were removed. The trial components were assembled. Excellent range of motion and proper soft tissue balancing were confirmed throughout the full range of motion. Patellar tracking was excellent. The knee was copiously irrigated periodically throughout the procedure. The real implants were cemented into position. Excess cement was carefully removed. The wound was closed in layers with interrupted #1 Vicryl suture, 2-0 strata fix suture, 0 strata fix suture, 2-0 strata fix suture. Steri-Strips placed on the skin with the knee flexed. Sterile bulky dressing applied. The patient was brought to the recovery room in stable condition. There were no complications. Implants Conform[employer] Custom total knee arthroplasty. Cemented. PS 6mm insert. Estimated Blood Loss -100.0 Drains No Complications No immediate complications Condition Stable Disposition PACU [facility] Billing Surgery - Charge Forward: Surgery Billing
--- NOTE | 2022-03-17 12:04 | SUR.PHASEI ---
1200: PT TRANSFERRED TO HOLD STATUS UNTIL AVAILABLE PLACEMENT.
[2022-03-17] MEDS: ONDANSETRON INJ 4 MG/2 ML VIAL IV PUSH ×2 (12:15→12:35)
--- NOTE | 2022-03-17 12:21 | SUR.PHASEI ---
PT ARRIVED JUST NOW FROM PACU. WILL CONTINUE TO HOLD UNTIL FLOOR ROOM IS READY.
[2022-03-17] MEDS: diphenhydrAMINE HCl INJ 50 MG/ML VIAL 25 MG IV PUSH (13:07)
[2022-03-17] MEDS: SCOPOLAMINE 1.5 MG PATCH TRANSDERM (13:07)
--- NOTE | 2022-03-17 14:17 | ADMGEN ---
This patient, Kristopher Hawk, was admitted to Medical Room 258-01. Patient/family oriented to hospital policies and general routines including ID bracelet, bed and alarms, visiting hours, pain management, procedures, bathroom and other care routines, personal items, smoking policy, room service/diet, and visiting hours. Information on how to activate the Rapid Response Team has been discussed. Patient/Family are encouraged to report perceived risks to care and to ask questions if they do not understand what they are told or what they should do.
[2022-03-17] MEDS: SODIUM CHLORIDE 0.9% IV 1,000 ML 125 ML IV CONT (15:03)
[2022-03-17] MEDS: oxyCODONE HCL (*CRX) 5 MG TAB IR 10 MG PO (15:47)
[2022-03-17] MEDS: gemfibroziL 600 MG TABLET PO (16:49)
[2022-03-17] MEDS: MELOXICAM 7.5 MG TABLET PO (16:49)
[2022-03-17] MEDS: ASPIRIN 81 MG ENTERIC TABLET PO (16:49)
[2022-03-17] MEDS: SENNA/DOCUSATE SODIUM TABLET 2 TAB PO (17:30)
[2022-03-17] MEDS: FAMOTIDINE 20 MG TABLET PO (20:51)
[2022-03-17] MEDS: oxyCODONE HCL (*CRX) 5 MG TAB IR PO (22:16)
[2022-03-18] MEDS: oxyCODONE HCL (*CRX) 5 MG TAB IR 10 MG PO ×2 (02:37→08:23)
[2022-03-18 05:38] LABS: Anion Gap 13 mmol/L (8-16); Blood Urea Nitrogen 15 mg/dL (9-20); Calcium 8.6 mg/dL (8.4-10.2); Carbon Dioxide 24 mmol/L (22-30); Chloride 100 mmol/L (98-107); Estimated CRCL calculation 114 ml/min; Estimated Glomerular Filt Rate > 60; Glucose 120 mg/dL (65-110); Potassium 4.1 mmol/L (3.4-5.0); Sodium 137 mmol/L (137-145)
[2022-03-18 05:51] LABS: Basophils Percent Auto 0.1 % (0.2-1.2); Hematocrit 34.4 % (42.0-52.0); Hemoglobin 11.5 g/dL (14.0-18.0); Immature Granulocyte Absolute 0.06 K/mm3 (0.00-0.031); Immature Granulocyte Percent A 0.5 % (0-0.5); Lymphocytes Absolute Auto 1.51 K/mm3 (0.9-3.2); Lymphocytes Percent Auto 12.4 % (18.3-44.2); Mean Corpuscular HGB Conc 33.4 g/dl (32-36); Mean Corpuscular Hemoglobin 31.4 pg (26-34); Mean Platelet Volume 10.5 fl (7.4-10.4); Monocytes Percent Auto 8.5 % (2.6-8.5); Neutrophils Absolute Auto 9.6 K/mm3 (1.3-6.7); Neutrophils Percent Auto 78.5 % (45.5-73.1); Platelet Count Result 237 k/mm3 (150-375); Red Blood Count 3.66 M/mm3 (4.6-6.20); Red Cell Distribution Width 13.1 % (11.5-14.5); White Blood Count 12.2 K/mm3 (4.5-10.0)
[2022-03-18 06:29] VITALS: BP 122/60; PULSE 76; RESP 16; TEMP 36.6; O2SAT 97
[2022-03-18] MEDS: ceFAZolin 2 GM/D5W 50 ML 2 GM/50 ML BAG IVPB (08:23)
[2022-03-18] MEDS: amLODIPine BESYLATE 5 MG TABLET 10 MG PO (08:24)
[2022-03-18] MEDS: polyethylene glycoL 3350 17 GM POWD.PACK PO (08:24)
[2022-03-18] MEDS: ASPIRIN 81 MG ENTERIC TABLET PO (08:24)
[2022-03-18] MEDS: gemfibroziL 600 MG TABLET PO (08:27)
[2022-03-18] MEDS: lisinopriL 20 MG TABLET 40 MG PO (08:27)
[2022-03-18] MEDS: predniSONE 5 MG TABLET PO (08:27)
[2022-03-18] MEDS: FAMOTIDINE 20 MG TABLET PO (08:27)
[2022-03-18 08:34] VITALS: PULSE 59
[2022-03-18] MEDS: atenoloL 50 MG TABLET PO (08:34)
[2022-03-18] MEDS: MELOXICAM 7.5 MG TABLET PO (08:34)
[2022-03-18] MEDS: ROSUVASTATIN 10 MG TABLET 20 MG PO (08:35)
[2022-03-18] MEDS: SENNA/DOCUSATE SODIUM TABLET 2 TAB PO (09:55)
[2022-03-18 10:06] VITALS: BP 155/58; PULSE 66; RESP 16; TEMP 36.3; O2SAT 94
--- NOTE | 2022-03-18 10:48 | PM.DS ---
DS: Admitting Diagnosis Discharge Date 03/18/22 Admitting Diagnosis OA knee Right DS: Discharge Diagnosis Discharge Diagnosis Plan Postop day 1: Right total knee arthroplasty. Patient tolerated procedure well. No complications. Pain manageable with pain medication. No numbness or tingling. We had a lengthy discussion regarding postoperative wound care, limitations, expectations, and exercises. Patient shows good understanding. He has had initial physical therapy and is tolerating it well. DVT prophylaxis: 81 mg baby aspirin b.i.d. for 14 days. Pain medication: Percocet. Meloxicam. Prednisone. Patient has followup appointment with Dr. Ro in 3 weeks. DS: Summary Hospital Course Reason for hospitalization: Total knee arthroplasty Hospital Course: Patient tolerated procedure well. Has had initial PT/OT. Status at Discharge Functional status at discharge: uses cane/walker Overall status at discharge: patient is progressing back to baseline Time Spent with Patient Time attestation: Total time spent providing and/or coordinating discharge services: Exam Narrative: Overweight 56 y/o Male. Resting comfortably in bed. Wearing compression socks bilaterally. Dressing intact with no drainage. Moderate swelling. Notes thigh pain. No ecchymosis. No erythema. No hematoma. Range of motion limited due to pain. Calf nontender. Neurologic status intact. No varicosities. Distal pulses palpable. DS: Data Data Completed and Pending Labs on day of discharge: Labs from last 24 hours 03/18/22 03/18/22 05:16 05:16 WBC 12.2 H RBC 3.66 L Hgb 11.5 L Hct 34.4 L MCV 94.0 MCH 31.4 MCHC 33.4 RDW 13.1 Plt Count 237 MPV 10.5 H Immature Gran % (Auto) 0.5 Neut % (Auto) 78.5 H Lymph % (Auto) 12.4 L [place] % (Auto) 8.5 Eos % (Auto) 0.0 Baso % (Auto) 0.1 L Lymph # (Auto) 1.51 [place] # (Auto) 1.0 H Eos # (Auto) 0.0 Baso # (Auto) 0.0 Abs Immat Gran (auto) 0.06 H Absolute Neuts (auto) 9.6 H Absolute Nucleated RBC 0.0 Nucleated RBC % 0.0 Sodium 137 Potassium 4.1 Chloride 100 Carbon Dioxide 24 Anion Gap 13 BUN 15 Creatinine 0.80 Estim Creat Clear Calc 114 Estimated GFR > 60 Glucose 120 H Calcium 8.6 Discharge Plan Discharge Patient Disposition: Home, Self-Care Discharge Instructions: See green instruction sheets Stand Alone Forms: General Discharge Instructions Follow-up/Referrals: Argenis Matthews PA [Physician Social Work Specialist] - Discharge Medications: New meloxicam 15 mg tablet 15 mg PO DAILY Qty: 30 0RF Rx Instructions: Cut in half. Take 1/2 in morning and 1/2 at night. Take with food. Stop if stomach upset. prednisone 5 mg tablet 5 mg PO DAILY 21 Days Qty: 21 0RF aspirin 81 mg tablet,delayed release (DR/EC) 81 mg PO BID 14 Days Qty: 28 0RF oxycodone-acetaminophen 5-325 mg tablet 1 - 2 tablet PO Q4-6H MDD 6 PRN (Reason: pain) Qty: 40 0RF Continued amlodipine 10 mg tablet 10 mg PO DAILY Qty: 90 1RF Rx Instructions: TAKES IN AM atenolol 50 mg tablet 50 mg PO DAILY Qty: 90 1RF Rx Instructions: TAKES IN AM gemfibrozil 600 mg tablet 600 mg PO BID Qty: 180 1RF lisinopril 40 mg tablet 40 mg PO DAILY Qty: 90 1RF Rx Instructions: TAKES IN AM rosuvastatin [Crestor] 20 mg tablet 20 mg PO DAILY Qty: 90 1RF
== END 2022-03-18 11:32 | disposition home or self-care (01) ==
LOC: ANHSURGERY 05:57 → ANH2MED 14:14
PROVIDERS: PCP Internal Medicine; Visit Provider Orthopaedic Surgery
PROC: (CPT 27447; principal; 2022-03-17 07:30)
DX: M17.11 Unilateral primary osteoarthritis, right knee (principal); G89.18 Other acute postprocedural pain; I10 Essential (primary) hypertension; E78.00 Pure hypercholesterolemia, unspecified; M10.9 Gout, unspecified; E66.9 Obesity, unspecified; Z68.32 Body mass index [BMI] 32.0-32.9, adult; Z87.891 Personal history of nicotine dependence
CPT/HCPCS: 27447; 64447; 36415; 73560; 80048; 85025; 86850; 86900; 86901; 97110; 97116; 97161; 97165; 97530; 97535; A9270; C1713; C1776; J0131; J0171; J0690; J1100; J1170; J1200; J1885; J2250; J2270; J2405; J2704; J2795; J3010; J7030; J7120; J7512

== ENCOUNTER 2022-06-05 14:30 | Outpatient (RCR) | payer OTHER, SELFPAY ==
--- NOTE | 2022-04-07 14:35 | PTOPEVAL1 ---
Assessment and note entered by Brenda Bunn DPT Evaluation Information Assessment Status Evaluation Subjective Information Pt had R TKA 3 weeks ago. Highest pain recently 6/ 10 and lowest 0/10. Did not walk with a cane before surgery, is now using one at times. Followed up with this morning, goes back in 1 month. States he has been walking, cooking, cleaning, and navigating stairs at home. Pt is working, can sit at work if he needs to. Reported Pain Level Pain Score 3: Self Report Assessment PT Clinical Summary The patient is presenting to skilled therapy 3 weeks s/p R TKA. He presents with decreased knee range of motion and strength which are contributing to his pain and gait impairments. He will benefit from therapy to address these impairments and safely return to prior level of function. Plan of Care Interventions Electrical Stimulation,Gait Training,Hot Pack/Cold Pack,Manual Therapy,Neuro Re-education,Patient/ Caregiver Education,Therapeutic Activities, Therapeutic Exercise,Ultrasound PT Services Indicated Yes These treatments will address the objective and functional deficits as defined above. The patient will be advanced safely and appropriately in order for the patient to progress towards his/her prior level of function. Additional exercises will be introduced and as well as a comprehensive home exercise program upon discharge, if needed, ?to ensure carryover of functional gains achieved in the clinic. This treatment plan has been reviewed and agreement upon by the patient.
--- NOTE | 2022-04-18 09:57 | PCPTNOTE ---
Patient called & cancelled scheduled appointment this date due to inclement weather.
--- NOTE | 2022-05-05 11:51 | PCPTNOTE ---
Patient called and cancelled his appointment, stated his knee is swelling and the MD told him to wait on therapy a couple days.
--- NOTE | 2022-05-09 08:55 | PTOPPROG ---
Assessment and note entered by Brenda Bunn DPT Evaluation Information Assessment Status Evaluation Subjective Information Highest pain in last week 1010 and lowest 2/10. Has been having difficulty with swelling as the day goes on and makes it more difficult to walk. Feels better with therapy, thinks his range of motion has improved. Has been able to sit and elevate at work as needed. Improved ability to do things at home, alternates feet up and down stairs . Sees MD next week. Assessment PT Clinical Summary The patient has made some progress in therapy. He demonstrates improved quad strength and mild range of motion impairments to 95 degrees of flexion ( 98 after manual techniques) but continues to lack full extension (+6). He demonstrates improved 5 time sit to stand test as well. He has reported an increase in edema which worsens throughout the day and causes more difficulty with walking. His pain has also increased secondary to edema. Due to his progress but continued gait impairments and limited range of motion, he will benefit from further therapy to return to full function. Plan of Care Interventions Electrical Stimulation,Hot Pack/Cold Pack,Manual Therapy,Neuro Re-education,Patient/Caregiver Education,Therapeutic Activities,Therapeutic Exercise,Self-Care/Home Management PT Services Indicated Yes Treatment Frequency and 2 times a week for 4 weeks Duration These treatments will address the objective and functional deficits as defined above. The patient will be advanced safely and appropriately in order for the patient to progress towards his/her prior level of function. Additional exercises will be introduced and as well as a comprehensive home exercise program upon discharge, if needed, ?to ensure carryover of functional gains achieved in the clinic. This treatment plan has been reviewed and agreement upon by the patient.
--- NOTE | 2022-05-30 08:06 | PCPTNOTE ---
Patient called & cancelled scheduled appointment this date due to work.
--- NOTE | 2022-06-05 15:11 | PTOPPROG ---
Assessment and note entered by Brenda Bunn DPT Evaluation Information Assessment Status Progress Subjective Information Highest pain in the last week 5/10 and lowest 1/10 . Overall feeling better. States the tingling has decreased. Reports no major issues with mobility, driving, or navigating stairs. Does continue to have pain and swelling after being up on it for a long time, like several hours. Pt is moving around at work a lot. Sees 06/09/22. Assessment PT Clinical Summary The patient has made some progress in therapy. He reports decreased pain to 5/10 at the worst. He demonstrates improved (but still limited) range of motion to 110 degrees of flexion and 5 degrees from full extension after manual therapy. He demonstrates improved strength and walk distance on the 2 minute walk test. Due to his progress but continued pain, range of motion limitations, and gait/stair impairments he will benefit from further therapy to return to full function. He will be out of town for the next month and plan to resume at that time. He has been educated in a thorough HEP to continue while traveling. Plan of Care Interventions Gait Training,Hot Pack/Cold Pack,Manual Therapy, Neuro Re-education,Patient/Caregiver Education, Therapeutic Activities,Therapeutic Exercise,Self- Care/Home Management PT Services Indicated Yes Treatment Frequency and re-assess in 1 month after patient returns from Duration trip These treatments will address the objective and functional deficits as defined above. The patient will be advanced safely and appropriately in order for the patient to progress towards his/her prior level of function. Additional exercises will be introduced and as well as a comprehensive home exercise program upon discharge, if needed, ?to ensure carryover of functional gains achieved in the clinic. This treatment plan has been reviewed and agreement upon by the patient.
--- NOTE | 2022-07-03 12:49 | PCPTNOTE ---
This treatment is being continued on visit number [id number]. Please see documentation on both accounts to view progress. Completed interventions, outcomes, and problems have been marked as Inactive to facilitate the copying of the Care plan routine for recurring accounts.
--- NOTE | 2022-10-02 09:03 | PCPTNOTE ---
This patient has been discharged from therapy. Last visit attended was 06/05/22.
== END 2022-07-03 11:22 | disposition home or self-care (01) ==
LOC: ANHPT 14:30
PROVIDERS: PCP Internal Medicine; Visit Provider Physician Assistant Surgical
DX: Z47.1 Aftercare following joint replacement surgery (principal); Z96.651 Presence of right artificial knee joint
CPT/HCPCS: 97110; 97112; 97140; 97161

== ENCOUNTER 2022-08-19 08:24 | Outpatient (CLI) | payer OTHER, SELFPAY ==
[2022-08-19 08:22] LABS: Basophils Percent Auto 0.3 % (0.2-1.2); Eosinophils Absolute Auto 0.2 K/mm3 (0-0.3); Eosinophils Percent Auto 3.6 % (0-4.4); Hematocrit 41.4 % (42.0-52.0); Immature Granulocyte Absolute 0.03 K/mm3 (0.00-0.031); Immature Granulocyte Percent A 0.5 % (0-0.5); Lymphocytes Absolute Auto 1.72 K/mm3 (0.9-3.2); Lymphocytes Percent Auto 27.2 % (18.3-44.2); Mean Corpuscular HGB Conc 33.8 g/dl (32-36); Mean Corpuscular Hemoglobin 31.7 pg (26-34); Mean Corpuscular Volume 93.7 fl (80-100); Mean Platelet Volume 10.2 fl (7.4-10.4); Monocytes Absolute Auto 0.5 K/mm3 (0.1-0.6); Monocytes Percent Auto 8.4 % (2.6-8.5); Neutrophils Absolute Auto 3.8 K/mm3 (1.3-6.7); Platelet Count Result 270 k/mm3 (150-375); Red Blood Count 4.42 M/mm3 (4.6-6.20); Red Cell Distribution Width 13.6 % (11.5-14.5); White Blood Count 6.3 K/mm3 (4.5-10.0)
[2022-08-19 08:30] LABS: Alanine Aminotransferase 21 U/L (6-50); Albumin Level 4.5 g/dL (3.5-5.1); Alkaline Phosphatase 71 U/L (38-126); Anion Gap 8 mmol/L (8-16); Aspartate Amino Transferase 19 U/L (17-59); Bilirubin,Total 0.6 mg/dL (0.2-1.3); Blood Urea Nitrogen 14 mg/dL (9-20); Calcium 9.3 mg/dL (8.4-10.2); Carbon Dioxide 31 mmol/L (22-30); Chloride 103 mmol/L (98-107); Cholesterol 123 mg/dL (0-200); Estimated Glomerular Filt Rate > 60; Glucose 116 mg/dL (65-110); HDL Direct 35 mg/dL; Potassium 4.5 mmol/L (3.4-5.0); Sodium 142 mmol/L (137-145); Triglycerides 121 mg/dL (<150)
[2022-08-19 08:41] LABS: Appearance Urine Clear (Clear); Bacteria Urine None Seen /hpf; Bilirubin Urine Negative (Negative); Blood Urine 1+ (Negative); Color Urine Yellow (Yellow); Glucose Urine UA Negative (Negative); Ketones Urine Trace mg/dL (Negative); Leukocyte Esterase Ur Trace LEU/UL (NEGATIVE); Nitrate Urine Negative (Negative); Protein Urine Negative (Negative); Specific Grav Ur 1.024 (1.001-1.035); Squamous Epithelial Cell Urine None seen /hpf (Few); WBC Urine 0-5 /hpf (0-3)
[2022-08-19 08:44] LABS: LDL Cholesterol Direct 59 mg/dL
[2022-08-19 08:54] LABS: Iron 105 ug/dL (49-181)
[2022-08-19 08:55] LABS: Add Urine Microscopic? YES
[2022-08-19 09:02] LABS: Hemoglobin A1C 5.7 % (<5.7)
[2022-08-19 09:04] LABS: Percent Iron Saturation 38 % (20-50)
[2022-08-19 09:35] LABS: Folic Acid 9.4 ng/mL (2.76->20)
[2022-08-27 13:09] LABS: Metanephrine, Total Urine 299 mcg/g cr (149-603); Metanephrine, Urine 126 mcg/g cr (21-153); Normetanephrine, Urine 173 mcg/g cr (108-524)
== END 2022-08-19 08:25 | disposition home or self-care (01) ==
PROVIDERS: PCP Internal Medicine; Visit Provider Internal Medicine
DX: D64.9 Anemia, unspecified (principal); E78.00 Pure hypercholesterolemia, unspecified; R73.9 Hyperglycemia, unspecified; I10 Essential (primary) hypertension
CPT/HCPCS: 36415; 80053; 80061; 81001; 82570; 82607; 82746; 83036; 83540; 83550; 83835; 84443; 85025

== ENCOUNTER 2022-12-15 03:01 | Day surgery (SDC) | payer OTHER, SELFPAY ==
[2022-10-03 10:39] VITALS: BMI 31.0
[2022-11-04 13:33] VITALS: BMI 31.0
--- NOTE | 2022-12-01 13:29 | PC.NURSE ---
Discussed new procedure arrival times. No new medical information since last phone call. Patient has no questions regarding his prep instructions. Patient verbalizes understanding.
[2022-12-15 06:49] VITALS: BP 143/83; PULSE 50; RESP 18; TEMP 36.7; O2SAT 98
[2022-12-15] MEDS: AMPICILLIN 2 GM/NS 100 ML 2 GM/100 ML BAG IVPB (06:53)
[2022-12-15] MEDS: LACTATED RINGERS 1,000 ML 150 ML IV CONT (07:03)
--- NOTE | 2022-12-15 07:19 | WPDANESEPPF ---
Anes - Initial Pre Proc Eval Procedure: Operation Date: 12/15/22 08:00 Proposed Procedures p Colonoscopy - Maximiliano Walker MD Date/Time: 12/15/22 07:19 Surgeon: Maximiliano Walker MD Pre Op Diagnosis: hx colon polyps, family hx colon polyps Patient Data Age: 57 Gender: M Height: 1.85 m Weight: 106.8 kg Last Vital Signs Temp 36.7 C 12/15/22 06:49 Pulse 50 L 12/15/22 06:49 Resp 18 12/15/22 06:49 BP 143/83 H 12/15/22 06:49 Pulse Ox 98 12/15/22 06:49 O2 Del Method Room Air 12/15/22 06:49 Allergies Allergy/AdvReac Type Severity Reaction Status Date / Time No Known Allergies Allergy Verified 12/15/22 06:48 Home Medications Medication Instructions Recorded Confirmed Type amlodipine 10 mg tablet 10 mg PO DAILY #90 tabs 07/08/22 10/15/22 Rx atenolol 50 mg tablet 50 mg PO DAILY #90 tabs 08/07/22 10/15/22 Rx gemfibrozil 600 mg tablet 600 mg PO BID #180 tabs 08/07/22 10/15/22 Rx lisinopril 40 mg tablet 40 mg PO DAILY #90 tabs 08/07/22 10/15/22 Rx rosuvastatin 20 mg tablet (Crestor) 20 mg PO DAILY #90 tabs 08/07/22 10/15/22 Rx Patient hx anesthesia problems: none Family hx anesthesia problems: none Results Review: All pre-operative results and documents have been reviewed as part of the pre-operative evaluation. [facility] Past Medical History Medical History Bilateral primary osteoarthritis of knee BMI 32.0-32.9,adult Gout Hypertension Liver hemangioma Pure hypercholesterolemia, unspecified Surgical History Surgical History History of arthroscopy of right knee Hx of right knee surgery excision right prepatellar bursa 2014 Family History Family History Mother Hypertension Patient's mother is Acute myocardial infarction Sibling Patient's sister is in good health Patient's brother is in good health Father Acute myocardial infarction, Onset Age: 57 Other Diabetes mellitus Family history of coronary artery disease Family history of learning disability Social History Social History Smoking packs per day: 1.5 Smoking cigarettes per day: 30.0 Years smoked: 10 Smoking pack-years: 15.00 Smoking status: Former smoker Second hand tobacco smoke exposure: No Alcohol intake: current Drinks per week: 2 Alcohol use details: occasional Substance use: never Substance use type: does not use Lack of Transportation: No Lack of Food: Never True Current Housing: I Have Housing Concerned About Future Housing: No Difficulty Paying Gas/Electric Bills: No Difficulty Paying for Meds: No Currently Unemployed: No Education: Decline to Answer Difficulty w/ Childcare or Family Care: No Living arrangements: with family Additional living arrangements comments: [facility] CHILDREN Gender identity (if verbalized by the patient): Male Spiritual care concerns: No Anes - Eval Final PreProcedure Day of Procedure 12/15/22 07:19 Patient weight: obese Heart: regular rate and rhythm Lungs: clear to auscultation Airway: Mallampati scale class II Neurological: alert and oriented Last oral intake: >/= 8 hours ASA classification: III Emergent: no Anesthetic plan: proceed Anesthesia type and monitoring: general GIVS and standard monitoring Results Review: All pre-operative results and documents have been reviewed as part of the pre-operative evaluation. Informed Consent: The patient's anesthetic plan and its attendant risks and benefits were discussed with the patient/family/POA. Questions were solicited and answers provided to the satisfaction of the patient/family/POA.
--- NOTE | 2022-12-15 07:39 | PM.HPGS ---
History of Present Illness History of Present Illness Consent: Risks, benefits, and alternatives have been discussed and questions answered. Patient agrees to proceed with procedure. Chief complaint: hx colon polyps, family hx colon polyps Narrative: Kristopher Hawk is a 57 year old male Presents for screening colonoscopy. Patient had adenomatous colon polyps by previous colonoscopy [address] Garcia. There is reported to be a family history of colon polyps. Patient has current weight appetite bowel movements are normal. Patient denies abdominal pain. He has had no bleeding. Family history noncontributory. Review of Systems Review of Systems: Review of systems noncontributory. [facility] Past Medical History Medical History Bilateral primary osteoarthritis of knee BMI 32.0-32.9,adult Gout Hypertension Liver hemangioma Pure hypercholesterolemia, unspecified Surgical History Surgical History History of arthroscopy of right knee Hx of right knee surgery excision right prepatellar bursa 2014 Family History Family History Mother Hypertension Patient's mother is Acute myocardial infarction Sibling Patient's sister is in good health Patient's brother is in good health Father Acute myocardial infarction, Onset Age: 57 Other Diabetes mellitus Family history of coronary artery disease Family history of learning disability Social History Social History Smoking packs per day: 1.5 Smoking cigarettes per day: 30.0 Years smoked: 10 Smoking pack-years: 15.00 Smoking status: Former smoker Second hand tobacco smoke exposure: No Alcohol intake: current Drinks per week: 2 Alcohol use details: occasional Substance use: never Substance use type: does not use Lack of Transportation: No Lack of Food: Never True Current Housing: I Have Housing Concerned About Future Housing: No Difficulty Paying Gas/Electric Bills: No Difficulty Paying for Meds: No Currently Unemployed: No Education: Decline to Answer Difficulty w/ Childcare or Family Care: No Living arrangements: with family Additional living arrangements comments: AND CHILDREN Gender identity (if verbalized by the patient): Male Spiritual care concerns: No Meds Home Medications and Allergies Home Medications Medication Instructions Recorded Confirmed Type amlodipine 10 mg tablet 10 mg PO DAILY #90 tabs 07/08/22 10/15/22 Rx atenolol 50 mg tablet 50 mg PO DAILY #90 tabs 08/07/22 10/15/22 Rx gemfibrozil 600 mg tablet 600 mg PO BID #180 tabs 08/07/22 10/15/22 Rx lisinopril 40 mg tablet 40 mg PO DAILY #90 tabs 08/07/22 10/15/22 Rx rosuvastatin 20 mg tablet (Crestor) 20 mg PO DAILY #90 tabs 08/07/22 10/15/22 Rx Allergies Allergy/AdvReac Type Severity Reaction Status Date / Time No Known Allergies Allergy Verified 12/15/22 06:48 Vital Signs Vital Signs - 24 hr 12/15/22 06:49 Temperature 98.1 F Pulse Rate 50 L Respiratory Rate 18 Blood Pressure 143/83 H Pulse Oximetry 98 Oxygen Delivery Room Air Exam Narrative: Physical exam reveals patient to be alert. Vital signs stable. HEENT exam is unremarkable. Patient is anicteric. Lungs are clear to auscultation and percussion. Heart is without murmur or extra sounds. Abdomen bowel sounds are present soft nontender with no organomegaly. Digital external rectal exam is normal. Assessment and Plan Assessment and plan (1) Hx of colonic polyp: Code(s): Z86.010 - Personal history of colonic polyps Status: Acute Assessment and Plan: Patient has a history of adenomatous colon polyp removed from the colon 2016. He is reported to have a family history of colon polyps. [place]
[2022-12-15 08:02] VITALS: BP 140/66; PULSE 56; RESP 16; O2SAT 95
[2022-12-15 08:12] VITALS: BP 131/82; PULSE 45; RESP 19; O2SAT 97
[2022-12-15 08:22] VITALS: BP 130/80; PULSE 46; RESP 23; O2SAT 97
== END 2022-12-15 08:31 | disposition home or self-care (01) ==
PROVIDERS: PCP Internal Medicine; Visit Provider Internal Medicine Gastroenterology
PROC: 0DJD8ZZ Inspection of Lower Intestinal Tract, Via Natural or Artificial Opening Endoscopic (ICD-10-PCS; CPT 45378; principal; 2022-12-15 08:00)
DX: Z12.11 Encounter for screening for malignant neoplasm of colon (principal); K64.8 Other hemorrhoids; K57.30 Diverticulosis of large intestine without perforation or abscess without bleeding; Z86.010 Personal history of colon polyps; Z83.71 Family history of colonic polyps; I10 Essential (primary) hypertension; E78.00 Pure hypercholesterolemia, unspecified; M10.9 Gout, unspecified; Z87.891 Personal history of nicotine dependence; E66.9 Obesity, unspecified; Z68.31 Body mass index [BMI] 31.0-31.9, adult
CPT/HCPCS: 45378; J0290; J2704; J7120

== ENCOUNTER 2024-09-05 08:45 | Outpatient (CLI) | payer OTHER, SELFPAY ==
--- OUTSIDE RECORDS SUMMARY | 2024-09-05 08:52 | XMS_ITS | Clinical Summary ---
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 Gender Identity Not on file Sexual Orientation Not on file Plan of Treatment Health Maintenance Due Date Last Done Comments Hepatitis C Virus (HCV) Screening 1965 TdaP Immunization 1965 Colonoscopy 09/10/2008 Colorectal Cancer Screening 09/10/2008 Cologuard 09/10/2013 Immunochemical Fecal Occult Blood 09/10/2013 Pneumococcal Immunization (5 0+ years) (1 of 1 - PCV) 09/10/2013 Zoster Immunization (1 of 2) 09/10/2013 PSA Discussion 09/10/2018 Influenza Immunization (#1) 2023 SARS-COV-2 Immunization ( - season) 2023 07/26/2020, 07/05/2020 Respiratory Syncytial Virus (RSV) Immunization (Adult) (1 - 1-dose 75+ series) 09/10/2038 Hepatitis B Immunization Aged Out No longer eligible based on patient's age to complete this topic Meningococcal Immunization (ACWY) Aged Out No longer eligible b ased on patient's age to complete this topic Pneumococcal Immunization Combined Aged Out No longer eligible b ased on patient's age to complete this topic Rotavirus Immunization Aged Out No lo nger eligible based on patient's age to complete this topic
[2024-09-05 13:51] LABS: Basophils Percent Auto 0.5 % (0.2-1.2); Eosinophils Absolute Auto 0.2 K/mm3 (0-0.3); Eosinophils Percent Auto 3.4 % (0-4.4); Hematocrit 42.7 % (42.0-52.0); Hemoglobin 14.5 g/dL (14.0-18.0); Immature Granulocyte Absolute 0.03 K/mm3 (0.00-0.031); Immature Granulocyte Percent A 0.5 % (0-0.5); Lymphocytes Absolute Auto 1.91 K/mm3 (0.9-3.2); Lymphocytes Percent Auto 31.4 % (18.3-44.2); Mean Corpuscular Hemoglobin 31.5 pg (26-34); Mean Corpuscular Volume 92.6 fl (80-100); Mean Platelet Volume 10.3 fl (7.4-10.4); Monocytes Absolute Auto 0.5 K/mm3 (0.1-0.6); Monocytes Percent Auto 7.7 % (2.6-8.5); Neutrophils Absolute Auto 3.4 K/mm3 (1.3-6.7); Neutrophils Percent Auto 56.5 % (45.5-73.1); Platelet Count Result 259 k/mm3 (150-375); Red Blood Count 4.61 M/mm3 (4.6-6.20); Red Cell Distribution Width 13.5 % (11.5-14.5); White Blood Count 6.1 K/mm3 (4.5-10.0)
[2024-09-05 15:57] LABS: Alanine Aminotransferase 21 U/L (6-50); Albumin Level 4.5 g/dL (3.5-5.1); Alkaline Phosphatase 69 U/L (38-126); Anion Gap 11 mmol/L (4-12); Aspartate Amino Transferase 41 U/L (17-59); Bilirubin,Total 0.5 mg/dL (0.2-1.3); Blood Urea Nitrogen 16 mg/dL (9-20); Calcium 9.1 mg/dL (8.4-10.2); Carbon Dioxide 25 mmol/L (22-30); Chloride 106 mmol/L (98-107); Cholesterol 160 mg/dL (0-200); Estimated Glomerular Filt Rate > 60; Glucose 108 mg/dL (65-110); HDL Direct 40 mg/dL; Sodium 142 mmol/L (137-145); Triglycerides 177 mg/dL (<150)
[2024-09-05 16:08] LABS: LDL Cholesterol Direct 68 mg/dL
[2024-09-05 17:31] LABS: Prostate Specific Antigen 1.1 ng/mL (< OR = 4.0)
[2024-09-05 18:20] LABS: Folic Acid 7.6 ng/mL (2.76->20)
[2024-09-05 22:08] LABS: Hemoglobin A1C 5.7 % (<5.7)
[2024-09-07 16:25] LABS: Lipoprotein A 31 nmol/L
== END 2024-09-05 08:46 | disposition home or self-care (01) ==
PROVIDERS: PCP Internal Medicine; Visit Provider Internal Medicine
DX: R73.9 Hyperglycemia, unspecified (principal); I10 Essential (primary) hypertension; E78.00 Pure hypercholesterolemia, unspecified; E53.8 Deficiency of other specified B group vitamins; E66.9 Obesity, unspecified; Z82.41 Family history of sudden cardiac death; Z12.5 Encounter for screening for malignant neoplasm of prostate
CPT/HCPCS: 36415; 80053; 80061; 82172; 82607; 82746; 83036; 83695; 84153; 84443; 84481; 85025; G0103

== ENCOUNTER 2025-01-06 14:20 | Outpatient (CLI) | payer OTHER, SELFPAY ==
--- NOTE | ~2025-01-06 | XR_ITS ---
[id number] Indication: M54.2 - Cervicalgia Comparison: None Findings: The vertebral heights are intact. No fracture or subluxation. Severe loss of disc height C5-6 and C6-7. Soft tissues unremarkable Impression: No acute abnormality. Reviewed, dictated and finalized at location A. Impression: No acute abnormality.
--- OUTSIDE RECORDS SUMMARY | 2025-01-06 15:06 | XMS_ITS | Clinical Summary ---
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 Gender Identity Not on file Sexual Orientation Not on file Plan of Treatment Health Maintenance Due Date Last Done Comments Hepatitis C Virus (HCV) Screening 1965 TdaP Immunization 1965 Cologuard 09/10/2008 Colonoscopy 09/10/2008 Colorectal Cancer Screening 09/10/2008 Immunochemical Fecal Occult Blood 09/10/2008 Pneumococcal Immunization (5 0+ years) (1 of 1 - PCV) 09/10/2013 Zoster Immunization (1 of 2) 09/10/2013 SARS-COV-2 Immunization ( - season) 2023 07/26/2020, 07/05/2020 Influenza Immunization (#1) 2024 Respiratory Syncytial Virus (RSV) Immunization (Adult) (1 - 1-dose 75+ series) 09/10/2038 Hepatitis B Immunization Aged Out No longer eligible based on patient's age to complete this topic Human Papillomavirus (HPV) Immunization Aged Out No longer eligible b ased on patient's age to complete this topic Meningococcal Immunization (ACWY) Aged Out No longer eligible b ased on patient's age to complete this topic Rotavirus Immunization Aged Out No lo nger eligible based on patient's age to complete this topic
== END 2025-01-06 14:21 | disposition home or self-care (01) ==
PROVIDERS: PCP Internal Medicine; Visit Provider Clinical Nurse Specialist
DX: M54.2 Cervicalgia (principal)
CPT/HCPCS: 72040

== ENCOUNTER 2025-01-19 08:55 | Outpatient (CLI) | payer OTHER, SELFPAY ==
--- NOTE | ~2025-01-19 | CT_ITS ---
EXAMINATION: CT cervical spine wo con COMPARISON: None HISTORY: M54.12 - Radiculopathy, cervical region TECHNIQUE: Axial images were obtained through the spine without IV contrast. Coronal, sagittal reconstruction images were obtained from the axial views. CT scan performed using dose optimization techniques including the following automated exposure control; adjustment of mA and/or kV; use of iterative reconstruction technique. Automatic exposure control was used to reduce radiation dose. Permanent radiation dose record is archived to PACS. FINDINGS: Grade 1 anterolisthesis of C3 on C4 and C4 on C5, no fracture is identified. Severe loss of disc height at C5-6 and C6-7 with moderate to severe canal and foraminal stenosis, outpatient MRI is recommended Soft tissues unremarkable. Impression: No acute abnormality. Reviewed, dictated and finalized at location A. Impression: No acute abnormality.
== END 2025-01-19 08:56 | disposition home or self-care (01) ==
LOC: MICIMG 08:56
PROVIDERS: PCP Internal Medicine; Visit Provider Clinical Nurse Specialist
DX: M54.12 Radiculopathy, cervical region (principal)
CPT/HCPCS: 72125